=== PATIENT | male | born 1970 | race Caucasian/White ===

== ENCOUNTER 2021-07-28 01:32 | Emergency (ER) | payer MEDICARE, OTHER ==
[~2021-07-28] VITALS: Ht 180.3 cm; Wt 99.8 kg
[~2021-07-28 01:32] MED LIST: IBUP-1953 PO; LEVO500T23 PO
[2021-07-28] MEDS ORDERED: CEPH500T PO (01:57)
[2021-07-28] MEDS ORDERED: SULF1TAB48 PO (01:57)
[2021-07-28 06:23] VITALS: BP 157/81
== END 2021-07-28 02:30 | disposition home or self-care (01) ==
LOC: ER 01:34
DX: L03.011 Cellulitis of right finger (principal); F17.200 Nicotine dependence, unspecified, uncomplicated